=== PATIENT | female | born 1955 | race Caucasian/White ===

== ENCOUNTER 2019-11-16 10:10 | Outpatient (CLI) | payer OTHER | END 2019-11-16 10:14 | disposition home or self-care (01) | LOC: SONOGRAMA 10:10 | DX: E04.2 Nontoxic multinodular goiter (principal) ==

== ENCOUNTER 2024-06-19 09:20 | Outpatient (CLI) | payer OTHER | END 2024-06-19 09:34 | disposition home or self-care (01) | LOC: SONOGRAMA 09:20 | PROVIDERS: ATTEND Pathology Anatomic Pathology & Clinical Pathology | DX: D44.0 Neoplasm of uncertain behavior of thyroid gland (principal); E04.2 Nontoxic multinodular goiter ==

== ENCOUNTER 2024-07-31 09:44 | Outpatient (CLI) | payer OTHER | END 2024-07-31 09:51 | disposition home or self-care (01) | LOC: SONOGRAMA 09:44 | PROVIDERS: ATTEND Pathology Anatomic Pathology | DX: D44.0 Neoplasm of uncertain behavior of thyroid gland (principal); E04.2 Nontoxic multinodular goiter ==